=== PATIENT | male | born 1940 | race Caucasian/White ===

== ENCOUNTER 2016-06-12 17:19 | Inpatient (IN) ==
--- NOTE | 2016-06-12 19:12 | PROVIDER DOCUMENTATION ---
HPI-General Adult - General Chief Complaint: Abnormal Lab[s] Stated Complaint: ABNORMAL LABS Time Seen by Provider: 06/12/16 18:27 Source: patient, family (Sister) Allergies/Adverse Reactions: Patient Allergies Allergy/AdvReac Type Severity Reaction Status Date / Time No Known Allergies Allergy Verified 06/12/16 18:31 Home Medications: Home Medication List Medication Instructions Recorded Confirmed Last Taken Type Atenolol [Tenormin] 50 mg PO BID 06/12/16 06/12/16 06/12/16 08:00 History Bicalutamide 50 mg PO DAILY 06/12/16 06/12/16 06/12/16 08:00 History Cholecalciferol (Vit D3) [Vitamin 1,000 unit PO DAILY 06/12/16 06/12/16 08:00 History D] Cyanocobalamin (Vitamin B-12) 2,500 mcg PO DAILY 06/12/16 06/12/16 06/12/16 08: 00 History [Vitamin B12] Cyclobenzaprine [Flexeril] 10 mg PO BID 06/12/16 06/12/16 06/12/16 08:00 History Levofloxacin 500 mg PO DAILY 06/12/16 06/12/16 06/12/16 08:00 History Levothyroxine [Synthroid] 75 microgm PO DAILY 06/12/16 06/12/16 06/12/16 08:00 History Omeprazole 40 mg PO DAILY 06/12/16 06/12/16 06/12/16 08:00 History Pilocarpine HCl 7.5 mg PO Q6HR 06/12/16 06/12/16 06/12/16 12:00 History - History of Present Illness -Gen Adult Nature of Presenting Problems: Pt is a 76 y/o M sent to the ED by his PCP because of abnormal labs. Pt has been SOB and had a CT of his chest to rule out a PE. Pt has a recent dx of liver cancer with his first chemo done which is about 2 weeks ago. Pt took 100mg of a steroid for 5 days recently. Pt denies fever, cough. He states the SOB is better today and last was good after is ER visit last night. Location of Pain/Injury: reports: none Pain Radiation: reports: no radiation Quality of Pain: reports: none Onset/Duration: reports: unsure, gradual Timing: reports: gone now Context/Activities at Onset: reports: none Associated Symptoms: reports: fatigue. denies: back/neck pain, chest pain, cough, fever/chills, sinus congestion/drainage, nausea, vomiting, trouble walking Similar Symptoms Previously?: Yes Recently seen or treated by another doctor?: Yes Review of Systems - Adult - REVIEW OF SYSTEMS - ADULT Constitutional: reports: fatique. denies: chills, fever, weight gain, weight loss Eyes: reports: no symptoms reported Ears, Nose, Mouth & Throat: reports: no symptoms reported Cardiovascular: denies: chest pain, edema Respiratory: reports: shortness of breath. denies: cough, wheezing Gastrointestinal: denies: abdominal pain, nausea, vomiting Genitourinary: reports: no symptoms reported Musculoskeletal: reports: no symptoms reported Integumentary: reports: no symptoms reported Neurological: reports: no symptoms reported Psychiatric: reports: no symptoms reported Endocrine: reports: no symptoms reported Hematologic/Lymphatic: reports: no symptoms reported Allergic/Immunologic: reports: no symptoms reported All Other Systems: Reviewed and Negative Past History - Adult - PAST MEDICAL HISTORY-ADULT Review of Records: reports: Old Records Reviewed, Nursing Assessment Review, Medications Reviewed Endocrine/Immune: reports: cancer (liver dx Mar 2016) - SOCIAL HISTORY Smoking: non-smoker, quit greater than 1 year Substance Use: none/never Living Situation: family Physical Exam-General - PHYSICAL EXAM-ADULT Initial Vital Signs Reviewed: Yes - CONSTITUTIONAL General Appearance: appears well (ill in appearance), alert - EYES Eyes: PERRL/EOMI, pink conjunctivae - HEAD, EARS, NOSE, MOUTH & THROAT HENMT: normal ENT inspection, pharynx normal, other (abscence of teeth). negative: moist mucous membranes (dry) - NECK Neck: non-tender, full range of motion, supple, normal inspection - RESPIRATORY Respiratory: lungs clear, normal breath sounds, no pleuratic chest pain, no respiratory distress, no accessory muscle use - CARDIOVASCULAR Cardiovascular: normal peripheral pulses, regular rate, rhythm - GASTROINTESTINAL (ABDOMEN) Abdominal Exam: normal bowel sounds, non tender, soft - MUSCULOSKELETAL Back Exam: normal inspection, no CVA tenderness, no vertebral tenderness Extremity: normal range of motion, non-tender, normal gait, normal inspection, no pedal edema - SKIN Integumentary: normal color, normal turgor, warm/dry - NEUROLOGIC Neurologic: grossly normal, no motor/sensory deficits - PSYCHIATRIC Psych/Mental Status: normal mood/affect, normal thought content, normal thought process, oriented x 3 Progress - PLAN OF CARE/RESULTS Progress/Plan/Lab Results: Laboratory Tests 06/12/16 06/12/16 06/12/16 20:10 20:10 20:10 WBC 2.23 L RBC 4.16 L Hgb 11.9 L Hct 34.0 L MCV 81.7 MCH 28.6 MCHC 35.0 RDW Std Deviation 13.2 Plt Count 67 L MPV Not Reportable Immature Gran % (Auto) 2.7 H Neut % (Auto) 58.8 Lymph % (Auto) 14.8 L Frontier % (Auto) 22.4 H Eos % (Auto) 0.9 Baso % (Auto) 0.4 Immature Gran # (Auto) 0.06 H Neut # (Auto) 1.31 L Lymph # (Auto) 0.33 L Frontier # (Auto) 0.50 Eos # (Auto) 0.02 Baso # (Auto) 0.01 Segmented Neutrophils 64 Lymphocytes 16 L Monocytes 20 H Sodium 123 L Potassium 4.4 Chloride 86 L Carbon Dioxide 24 L Anion Gap 13 BUN 31 H Creatinine 1.4 H Estimated GFR/1.73 m2 50 BUN/Creatinine Ratio 22 Glucose 112 H Calculated Osmolality 255 Calcium 9.2 Total Bilirubin 0.54 AST 11 ALT 18 Alkaline Phosphatase 114 Total Protein 7.2 Albumin 3.8 Globulin 3.4 Albumin/Globulin Ratio 1.1 Plasma Lactate 1.3 Orders Category Date Time Status Saline Loc NOW Care 06/12/16 18:36 Active CHEST-2 VIEWS [RAD] Stat Exams 06/12/16 18:36 Taken BLOOD CULTURE [BLDCUL] Stat Lab 06/12/16 20:20 Results CBC WITH DIFF [HEME] Stat Lab 06/12/16 20:10 Completed COMPREHENSIVE METABOLIC PANEL [CHEM] Stat Lab 06/12/16 20:10 Completed LACTATE, PLASMA [CHEM] Stat Lab 06/12/16 20:10 Completed 0.9% Sodium Chloride Inj [Ns] 1,000 ml Med 06/12/16 20:57 Active IV 999 mls/hr Pulse Oximetry Stat Oth 06/12/16 18:36 Active Vital Signs Temp Pulse Resp BP Pulse Ox 06/12/16 17:41 94.8 F L 93 H 22 112/63 100 No Known Allergies Allergy (Verified 06/12/16 18:31) Atenolol [Tenormin] 50 mg PO BID 06/12/16 Bicalutamide 50 mg PO DAILY 06/12/16 Cholecalciferol (Vit D3) [Vitamin D] 1,000 unit PO DAILY 06/12/16 Cyanocobalamin (Vitamin B-12) [Vitamin B12] 2,500 mcg PO DAILY 06/12/16 Cyclobenzaprine [Flexeril] 10 mg PO BID 06/12/16 Levofloxacin 500 mg PO DAILY 06/12/16 Levothyroxine [Synthroid] 75 microgm PO DAILY 06/12/16 Omeprazole 40 mg PO DAILY 06/12/16 Pilocarpine HCl 7.5 mg PO Q6HR 06/12/16 Laboratory 06/12/16 06/12/16 06/12/16 20:10 20:10 20:10 WBC 2.23 L RBC 4.16 L Hgb 11.9 L Hct 34.0 L MCV 81.7 MCH 28.6 MCHC 35.0 RDW Std Deviation 13.2 Plt Count 67 L MPV Not Reportable Immature Gran % (Auto) 2.7 H Neut % (Auto) 58.8 Lymph % (Auto) 14.8 L Frontier % (Auto) 22.4 H Eos % (Auto) 0.9 Baso % (Auto) 0.4 Immature Gran # (Auto) 0.06 H Neut # (Auto) 1.31 L Lymph # (Auto) 0.33 L Frontier # (Auto) 0.50 Eos # (Auto) 0.02 Baso # (Auto) 0.01 Segmented Neutrophils 64 Lymphocytes 16 L Monocytes 20 H Sodium 123 L Potassium 4.4 Chloride 86 L Carbon Dioxide 24 L Anion Gap 13 BUN 31 H Creatinine 1.4 H Estimated GFR/1.73 m2 50 BUN/Creatinine Ratio 22 Glucose 112 H Calculated Osmolality 255 Calcium 9.2 Total Bilirubin 0.54 AST 11 ALT 18 Alkaline Phosphatase 114 Total Protein 7.2 Albumin 3.8 Globulin 3.4 Albumin/Globulin Ratio 1.1 Plasma Lactate 1.3 - XRAY 1 XRAY Study: Chest Impression: Normal XRAY Interpretation: Read by Dr Reyes-No acute findings - CONSULTS/PCP/HOSPITALIST Notification #1 *Consult/PCP/Hospitalist*: Dr Sushil Time Discussed: 21:03 Reason/Comments: Plan of care with admission Consult Disposition: Will see in ED Departure - Departure Time of Disposition Order: 21:04 DIAGNOSIS: Hyponatremia, Dehydration, Lethargic Leukopenia Qualifiers: Leukopenia type: other Qualified Code(s): D72.818 - Other decreased white blood cell count Disposition: ADMITTED INPATIENT 09 Certified Medical Emergency: Emergent Condition: Stable Attestation - Scribe Verification/Attestation Scribe:: Seferino Wolfe Acting as Scribe for:: Mikal Reyes Scribe documention review:: This chart was documented by a scribe and accurately reflects the service the provider performed and the decisions made by the provider.
[2016-06-12 20:41] LABS: BASO% 0.4 % (0.0-0.8); EOS# 0.02 X1000 (0.0-0.7); EOS% 0.9 % (0.0-10.0); HEMOGLOBIN 11.9 g/dL (14.0-18.0); IMM GRAN# 0.06 X1000 (0.0-0.04); IMM GRAN% 2.7 % (0.0-0.5); LYMPH# 0.33 X1000 (1.2-3.4); LYMPH% 14.8 % (20.5-51.1); MANUAL DIFF NEEDED? YES; MCH 28.6 PG (27-31); MCV 81.7 FL (81-99); MONO% 22.4 % (1.7-9.3); NEUT% 58.8 % (42.2-75.2); PLT 67 X1000 (130-400); RBC 4.16 XMIL (4.7-6.1)
[2016-06-12 20:54] LABS: ALBUMIN 3.8 g/dL (3.5-5.0); CALCIUM 9.2 mg/dL (8.8-10.2); POTASSIUM 4.4 mmol/L (3.5-5.1); TOTAL BILIRUBIN 0.54 mg/dL (0.20-1.00); TOTAL PROTEIN 7.2 g/dL (6.3-8.3)
[2016-06-12] MEDS ORDERED: NS 1,000 ML IV ONE (20:57)
[2016-06-12 21:02] LABS: LYMPHS 16 % (21-51); MONO 20 % (1-9)
--- NOTE | 2016-06-12 23:56 | HISTORY AND PHYSICAL ---
CHIEF COMPLAINT: Weakness, fatigue and shortness of breath for several days. HISTORY OF PRESENTING ILLNESS: This is a 76-year-old male with a history of lymphoma, hypertension and hypothyroidism, who presented to the emergency department after he was called by his oncologist due to having some abnormal labs. The patient states that he was getting more fatigued and short of breath and was feeling more weak. He was evaluated in the ER, he was found to have a low sodium, and he was somewhat dehydrated. Due to his presenting symptoms, it was thought that he would need hospitalization for further management. At the time of my examination, he had denied any headaches, vision changes, fevers, chills, chest pain, hemoptysis, melena, but complained of shortness of breath and fatigue. PAST MEDICAL HISTORY: Includes lymphoma, hypertension, hypothyroidism. PAST SURGICAL HISTORY: tonsillectomy. ALLERGIES: No known drug allergies. CURRENT MEDICATIONS: As listed in the MAR. SOCIAL HISTORY: He is a former smoker. History of alcohol abuse in the past. Denies any illicit drug use. FAMILY HISTORY: Positive for coronary disease in his father. REVIEW OF SYSTEMS: [employer] point systems is as in HPI. Other systems negative. PHYSICAL EXAMINATION: GENERAL: Cooperative, friendly male. He is resting comfortably now. VITAL SIGNS: Temperature 94.8, pulse 93, respiration 22, blood pressure 112/63. He is sating 100%. HEENT: Atraumatic, normocephalic. Extraocular movements intact. PERRLA. NECK: No masses. CHEST: Clear to auscultation. CARDIOVASCULAR: Regular rate and rhythm. ABDOMEN: Soft. Positive bowel sounds. EXTREMITIES: No edema. NEURO: He is awake, alert, oriented x3. : No bladder distention. SKIN: Some tinting. LABORATORIES AND STUDIES: WBC 2.23, hemoglobin 11.9, hematocrit 34.0, platelets 67,000. Sodium 123, potassium 4.4, chloride 86, CO2 of 24, BUN is 31, creatinine 12.4, glucose is 112. ASSESSMENT: A 76-year-old male with a history of lymphoma, hypertension and hypothyroidism, who presented to the emergency department with several days history of having fatigue and shortness of breath. He was evaluated in the ER, was found to be hyponatremic and dehydrated. Due to his presenting symptoms, he will need hospitalization for further management. ASSESSMENT: 1. Hyponatremia. 2. Dehydration. 3. Weakness. 4. Lymphoma. 5. Hypertension. PLAN: 1. We will admit patient to medical floor with telemetry. 2. We will continue with IV fluids, and give him adequate hydration. 3. Put him on supplemental oxygen as needed. 4. We will consult his oncologist. 5. Monitor blood pressure closely. 6. We will put patient on DVT prophylaxis with SCDs. 7. We will continue to follow and reassess.
[2016-06-13] MEDS ORDERED: ZOFRAN IV PRN (00:37)
[2016-06-13] MEDS: NS 1,000 ML IV SCH ×3 (00:55→20:18)
[2016-06-13 06:47] LABS: BASO% 0.4 % (0.0-0.8); EOS# 0.02 X1000 (0.0-0.7); EOS% 0.7 % (0.0-10.0); HEMATOCRIT 30.9 % (42.0-52.0); HEMOGLOBIN 10.3 g/dL (14.0-18.0); IMM GRAN# 0.16 X1000 (0.0-0.04); IMM GRAN% 5.9 % (0.0-0.5); LYMPH# 0.43 X1000 (1.2-3.4); LYMPH% 15.8 % (20.5-51.1); MANUAL DIFF NEEDED? YES; MCH 27.7 PG (27-31); MCHC 33.3 g/dL (33-37); MCV 83.1 FL (81-99); MONO# 0.61 X1000 (0.11-0.59); MONO% 22.4 % (1.7-9.3); NEUT% 54.8 % (42.2-75.2); PLT 61 X1000 (130-400); RBC 3.72 XMIL (4.7-6.1)
[2016-06-13 06:54] LABS: AGAP 12; BUN 28 mg/dL (8-22); CHLORIDE 91 mmol/L (98-107); COSMO 258; POTASSIUM 3.8 mmol/L (3.5-5.1); SODIUM 126 mmol/L (136-145); TCO2 23 mmol/L (25-35)
[2016-06-13 07:33] LABS: BANDS 8 % (0-1); BASO 2 % (0-1); EOS 2 % (1-10); LYMPHS 16 % (21-51); MONO 18 % (1-9)
--- NOTE | 2016-06-13 08:13 | Diag Imaging Result Document ---
PROCEDURE NAME: CHEST-2 VIEWS - 06/12/2016 PA AND LATERAL RADIOGRAPH OF THE CHEST: COMPARISON: None available. FINDINGS: There is a left chest port in place with the tip projecting over the lower SVC in the expected position. There is a calcified granuloma at the left lung apex. The lungs are grossly clear otherwise. There is no definite pleural fluid collection. Cardiac silhouette and central vasculature are unremarkable. IMPRESSION: No evidence of acute pathology.
[2016-06-13] MEDS ORDERED: SAMSCA PO ONE (09:11)
--- NOTE | 2016-06-13 09:49 | PROGRESS NOTE ---
DATE: 06/13/2016 SUBJECTIVE: The patient is feeling fine. Denies any dizziness, any headache, nausea or vomiting. OBJECTIVE: Vital Signs: Temperature is 98.2 degrees, heart rate 90, respiratory rate 19, blood pressure 127/67. O2 saturation 97% on room air. General Examination: This is a 76-year-old male, lying in bed, in no acute distress. HEENT: Head is normocephalic, atraumatic. Anicteric sclerae and pale conjunctivae. Mucous membranes moist. Pupils equal , round, reactive to light and accommodation. Neck: Supple. No jugular venous distention noted. No carotid bruits. No lymphadenopathy. No thyromegaly. Cardiovascular Examination: S1 and S2 heard. No murmurs, gallops, or rubs. Regular rate and rhythm. Respiratory Examination: Clear bilaterally to auscultation. No work of breathing or using accessory muscles. Abdomen: Abdomen is soft, nontender to palpation. Bowel sounds present. No organomegaly. Extremities: No clubbing, cyanosis, or edema. Peripheral pulses present in both legs. Neurological Examination: Patient is alert and oriented x3. Able to move 4 extremities. Cranial nerves 2-12 grossly normal. LABORATORY DATA: White cell count is 2.72, hemoglobin 10.3, hematocrit 30.9, platelets 61,000. Sodium 126, potassium 3.8, chloride 91, bicarbonate 23, BUN 28, creatinine 1.1. ASSESSMENT AND PLAN: 1. Hyponatremia. 2. Acute kidney injury. 3. History of lymphoma. 4. Hypertension. PHYSICAL EXAMINATION: The patient was admitted to the hospital because generalized weakness and hypernatremia. Sodium is getting better since yesterday. We will continue with IV fluids. We will provide 1 dose of Samsca to see what will happen. Also for home acute kidney, IV fluids have been started and creatinine is back to normal. We will continue with same management. Regarding blood pressure, that is running between 108 to 127, so we are not going to restart any antihypertensives medications. For physical examination, we will consult physical therapy. We will see what are their recommendations. MTDD
[2016-06-13] MEDS: SYNTHROID PO SCH (10:31)
[2016-06-13] MEDS: PRILOSEC PO SCH (10:31)
[2016-06-13] MEDS: CASODEX PO SCH (10:32)
[2016-06-13] MEDS: TENORMIN PO SCH ×2 (10:32→20:41)
[2016-06-13] MEDS: VITAMIN D PO SCH (10:32)
[2016-06-13] MEDS: VITAMIN B-12 PO SCH (10:32)
[2016-06-13] MEDS: FLEXERIL PO SCH ×2 (10:33→20:42)
[2016-06-13] MEDS: SALAGEN PO SCH ×4 (10:33→20:58)
[2016-06-14] MEDS: SALAGEN PO SCH ×2 (01:45→10:48)
[2016-06-14] MEDS: SYNTHROID PO SCH (06:42)
[2016-06-14 09:06] LABS: BASO% 1.3 % (0.0-0.8); EOS# 0.02 X1000 (0.0-0.7); EOS% 0.4 % (0.0-10.0); HEMATOCRIT 32.7 % (42.0-52.0); HEMOGLOBIN 10.6 g/dL (14.0-18.0); IMM GRAN# 0.52 X1000 (0.0-0.04); IMM GRAN% 9.6 % (0.0-0.5); LYMPH# 0.52 X1000 (1.2-3.4); LYMPH% 9.6 % (20.5-51.1); MANUAL DIFF NEEDED? YES; MCH 27.8 PG (27-31); MCHC 32.4 g/dL (33-37); MCV 85.8 FL (81-99); MONO# 0.85 X1000 (0.11-0.59); MONO% 15.6 % (1.7-9.3); MPV 13.5 FL (7.4-10.4); NEUT% 63.5 % (42.2-75.2); PLT 74 X1000 (130-400); RBC 3.81 XMIL (4.7-6.1)
[2016-06-14 09:15] LABS: CALCIUM 8.1 mg/dL (8.8-10.2)
[2016-06-14 09:50] LABS: BANDS 10 % (0-1); EOS 2 % (1-10); LYMPHS 8 % (21-51); MONO 8 % (1-9)
[2016-06-14] MEDS: PRILOSEC PO SCH (10:46)
[2016-06-14] MEDS: VITAMIN B-12 PO SCH (10:46)
[2016-06-14] MEDS: TENORMIN PO SCH (10:47)
[2016-06-14] MEDS: VITAMIN D PO SCH (10:47)
[2016-06-14] MEDS: CASODEX PO SCH (10:48)
[2016-06-14] MEDS: FLEXERIL PO SCH (10:48)
[2016-06-14 13:38] VITALS: BP 124/85
--- NOTE | 2016-06-14 14:24 | CONSULTATION ---
DATE OF CONSULTATION: 06/13/2016 ADMITTING PHYSICIAN: Dr. Javi Ling. REQUESTING PHYSICIAN: Dr. Javi Ling. We appreciate this consult. CHIEF COMPLAINT: Lymphoma. HISTORY OF PRESENT ILLNESS: Mr. 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 Additionally the patient received Neulasta on 06/04/2016. The patient presented to clinic for followup and was found to have an ANC of 0.0 on June 10. The patient also had dyspnea at rest. It was suggested that the patient present to the emergency room for evaluation of dyspnea. However the patient wished to go home. The patient was called on June 11 and reported that he had continued dyspnea at that time. It was suggested that the patient present to the emergency department for evaluation. The patient presented to [facility] Emergency Department on 06/12/2016. At that time he had significant dyspnea as well as fatigue and weakness. The patient was found to have a white blood cell count of 2.72 and ANC had increased to 1.49 at that time. Hemoglobin was 10.3. The patient is to be admitted for dehydration and hyponatremia. Blood cultures are currently pending. The patient does report improvement in his symptoms since admission. PAST MEDICAL HISTORY: 1. Lymphoma stage 4 B-cell. 2. Hypertension. 3. Hypothyroidism. PAST SURGICAL HISTORY: Tonsillectomy. MEDICATIONS ON ADMISSION: 1. Flexeril. 2. Cyanocobalamin. 3. Casodex. 4. Atenolol. 5. Salagen. 6. Synthroid. 7. Vitamin D3. 8. Zofran. ALLERGIES: The patient has no known drug allergies. REVIEW OF SYSTEMS: A 14 point review of systems was obtained and is negative except as mentioned in HPI. PHYSICAL EXAM: General: Mr. Chung is a very pleasant 76-year-old male lying supine in bed currently in no immediate distress. Vital Signs: Temperature 98.2 degrees, blood pressure 138/64, heart rate 82, respirations 16, O2 saturation is 100% on room air. HEENT: Normocephalic, atraumatic. Mucous membranes are pink and somewhat dry. Sclerae is anicteric. Extraocular movements intact. Neck: Supple. Lungs: Clear to auscultation bilaterally. Chest expansion is equal bilaterally. CV: S1, S2 is heard without murmur, rub or gallop. Abdomen: Soft, nondistended, nontender. Bowel sounds positive all quadrants. No rebound or guarding noted. Extremities: Without clubbing, cyanosis, or edema. Dermatologic: No rashes, bruises or lesions. Neurologic: The patient is awake, alert, and oriented x3. He has no focal motor deficit at this time. LABORATORY DATA: Hemoglobin 10.3, hematocrit 30.9, white blood cell count 2.72, platelets 61,000. ANC is 1.49. Sodium 126, potassium 3.8, chloride 91, CO2 is 23, BUN 128, creatinine 1.1, glucose is 79. Blood cultures are currently pending. IMAGING STUDIES: Chest x-ray revealed no evidence of acute pathology. ASSESSMENT AND PLAN: 1. Stage IV B-cell lymphoma on R-CHOP status post cycle 1, day 1 on 06/03/2016 with Neulasta on 06/04/2016 currently stable. 2. Hyponatremia with a sodium of 126 currently on normal saline intravenous fluid replacement. 3. Dehydration. We agree with IV fluid hydration as ordered. 4. Neutropenia with an ANC of 0.0 on June 10 which is improved to an ANC of 1.49. Will continue to monitor ANC. 5. Iron-deficiency anemia status post Injectafer on 06/10/2016 with a hemoglobin of 10.3 at this time. 6. We will follow along with you and make further recommendations pending outcomes. The patient is okay for discharge home if sodium improves and respiratory status is stable. We appreciate your help. The above reflects the history, exam, assessment and plan of Dr. Trevino. Dictated by NEGRO Crooks for Triston Rodrigues MD
--- NOTE | 2016-06-14 18:59 | DISCHARGE SUMMARY ---
ADMISSION DATE: 06/12/2016 DISCHARGE DATE: 06/14/2016 CONSULTATIONS: None. PROCEDURES: Chest x-ray showed no evidence of acute pathology. DISCHARGE DIAGNOSES: 1. Hyponatremia, resolved. Patient was given a dose of Samsca, continued on IV fluids. 2. Acute kidney injury, resolved. 3. Hypertension, controlled. 4. Lymphoma history, aware. Follows with Dr. Rodrigues. HOSPITAL COURSE: Briefly, Mr. Chung is a 76-year-old male with past medical history of lymphoma, followed by Dr. Rodrigues, hypertension, hypothyroidism, who presented to the ED after he was called by his oncologist due to having some abnormal labs. He states he was getting fatigued and short of breath and was feeling more weak. He was evaluated in the ED, found to have a low sodium. He was somewhat dehydrated. The patient was admitted with the administration of IV fluids for adequate hydration. The patient was given a dose of Samsca on 2016. On admission the patient's sodium was 123. On 06/13/2016, it was 126. On the date of discharge it is 139. BUN went from 31 to 28 to 18 on the day of discharge. Creatinine on admission was 1.4, 1.1, and 1.2 at the time of discharge. Physical therapy was consulted to see how improved the patient's weakness is. The patient did not require skilled PT intervention in the hospital setting. They did feel that it was safe for the patient to return home to his [facility]. No other skilled PT intervention was required. He did understand to utilize his cane to ambulate and, if needed, would have a landlord or neighbor's help. The patient is being discharged home today. Vital signs: Temperature 97.5, heart rate 92, respirations 20, blood pressure 123/72, oxygen saturation is 98% on room air. DISCHARGE MEDICATIONS: 1. Bicalutamide 50 mg p.o. daily. 2. Vitamin B12 25 mcg p.o. daily. 3. Flexeril 10 mg p.o. b.i.d. 4. Prilosec 40 mg p.o. daily. 5. Pilocarpine 7.5 mg p.o. every 6 hours. 6. Synthroid 75 mcg p.o. daily. 7. Tenormin 50 mg p.o. b.i.d. 8. Vitamin D3 1000 units p.o. daily. FOLLOWUP: The patient is being discharged home today. He will need to follow up with his primary care physician, Richard Perkins MD, in 7-10 days as well as Dr. Rodrigues as indicated. Patient can return to the ED for any worsening of symptoms. DISCHARGE TIME: Thirty five minutes. Dictated by NEGRO Doyle for Bony Barrera MD MTDD
--- NOTE | 2016-06-19 20:23 | DISCHARGE SUMMARY ---
ADMISSION DATE: 06/12/2016 DISCHARGE DATE: 06/14/2016 DISCHARGE SUMMARY ADDENDUM: Answer: Pancytopenia secondary to chemotherapy.
== END 2016-06-14 14:30 | disposition home or self-care (01) | DRG 682 ==
LOC: ED 17:19 → EDIPHOLD 23:14
PROVIDERS: ATTEND Internal Medicine
DX: N17.9 Acute kidney failure, unspecified (principal); D61.810 Antineoplastic chemotherapy induced pancytopenia; C85.10 Unspecified B-cell lymphoma, unspecified site; E87.1 Hypo-osmolality and hyponatremia; E86.0 Dehydration; I10 Essential (primary) hypertension; E03.9 Hypothyroidism, unspecified; Z87.891 Personal history of nicotine dependence; Z82.49 Family history of ischemic heart disease and other diseases of the circulatory system; Z79.899 Other long term (current) drug therapy
CPT/HCPCS: 71020; 80048; 80053; 83605; 83930; 83935; 84443; 85025; 87040; 99285; J7030